=== PATIENT | female | born 1995 | race Hispanic/Latino ===

== ENCOUNTER 2017-10-13 03:14 | Emergency (ER) | payer SELFPAY ==
[~2017-10-13] VITALS: Ht 157.5 cm; Wt 67.0 kg
[~2017-10-13 03:14] MED LIST: AUGMENTIN875TAB PO; FLUZONE SPLT1 M1 IM; IRON325 MG OR; OBTREX DHA PO; PARAGARD; PRILOSEC40 MG PO
[2017-10-13] MEDS ORDERED: AMOXICILLIN500 MG PO (04:07)
[2017-10-13 04:24] VITALS: BP 123/86
== END 2017-10-13 04:24 | disposition home or self-care (01) | DRG 156 ==
LOC: ED 03:14
PROC: 09C4XZZ Extirpation of Matter from Left External Auditory Canal, External Approach (ICD-10-PCS; principal; 2017-10-13)
DX: T16.1XXA Foreign body in right ear, initial encounter (principal); X58.XXXA Exposure to other specified factors, initial encounter; Y92.009 Unspecified place in unspecified non-institutional (private) residence as the place of occurrence of the external cause

== ENCOUNTER 2020-12-08 13:26 | Emergency (ER) | payer OTHER ==
[~2020-12-08] VITALS: Ht 157.5 cm; Wt 70.0 kg
[~2020-12-08 13:26] MED LIST changes: +AMOXICILLIN500 MG PO
[2020-12-08 15:15] LABS: HEMATOCRIT 37.7 % (37.0-47.0); HEMOGLOBIN 12.3 g/dl (12.0-16.0); IMMATURE GRANULOCYTES 0.4 % (0.0-5.0); MEAN CELL VOLUME 81.6 fL CALC (80.0-100.0); MEAN CORPUSCULAR HGB 26.6 pG CALC (26.0-32.0); MEAN CORPUSCULAR HGB CONC 32.6 g/dL CAL (32.0-36.0); NEUT# 4.24 thou/uL (2.00-7.15); RED BLOOD COUNT 4.62 mill/uL (4.20-5.60); RED CELL DISTRI WIDTH 15.5 % (11.5-15.5)
[2020-12-08 15:26] LABS: BUN 13 mg/dL (7-17); BUN/CREATININE RATIO 21 (12-20 (CALC)); CHLORIDE 102 mmol/l (95-108); CREATININE 0.6 mg/dL (0.5-1.0); GFR > 60 ML/MIN (>=60 (CALC)); GFR FOR AFR.AMER. > 60 ML/MIN (>=60 (CALC)); LIPASE 94 u/l (23-300); SODIUM 138 mmol/l (137-146)
[2020-12-08 15:32] LABS: ALBUMIN 4.7 g/dL (3.2-5.0); ALKALINE PHOSPHATASE 232 u/l (38-126); ANION GAP 14 (6-22 (CALC)); BILIRUBIN, TOTAL 2.5 mg/dL (0.0-1.4); CARBON DIOXIDE 26 mmol/l (22-30); SGOT/AST 258 u/l (14-36); TOTAL PROTEIN 8.2 g/dL (6.3-8.2)
[2020-12-08 15:50] LABS: URINE BLOOD DIPSTICK LARGE (NEGATIVE); URINE GLUCOSE - DIPSTICK 100 mg/dL (NEGATIVE); URINE KETONE >=80 mg/dL (NEGATIVE); URINE LEUK ESTERASE NEGATIVE (NEGATIVE); URINE NITRITE - DIPSTICK NEGATIVE (Negative); URINE PROTEIN - DIPSTICK 30 mg/dL (NEG-TRACE); URINE SPECIFIC GRAVITY >=1.030
[2020-12-08 15:52] LABS: URINE BILIRUBIN - DIPSTICK LARGE (NEGATIVE); URINE COLOR DK. YELLOW
[2020-12-08 16:00] LABS: URINE SQUAMOUS EPITHELIAL CELL FEW EPI/hpf (0-FEW); URINE WBC 0-2 WBC/hpf (0-5)
[2020-12-08 17:16] VITALS: BP 128/77
[2020-12-08] MEDS ORDERED: FAMOTIDINE20 M1 PO (17:29)
[2020-12-09] MEDS ORDERED: SINGULAIR10 MG PO (09:09)
== END 2020-12-08 17:13 | disposition left against medical advice (07) ==
LOC: ED 13:26
PROVIDERS: Family Medicine
DX: K80.11 Calculus of gallbladder with chronic cholecystitis with obstruction (principal); K21.9 Gastro-esophageal reflux disease without esophagitis; Z91.19 Patient's noncompliance with other medical treatment and regimen

== ENCOUNTER 2020-12-09 08:18 | Emergency (ER) | payer OTHER ==
[~2020-12-09] VITALS: Ht 157.5 cm; Wt 50.0 kg
[~2020-12-09 08:18] MED LIST changes: +FAMOTIDINE20 M1 PO
[2020-12-09 09:01] LABS: HEMATOCRIT 38.9 % (37.0-47.0); HEMOGLOBIN 12.5 g/dl (12.0-16.0); IMMATURE GRANULOCYTES 0.6 % (0.0-5.0); MEAN CELL VOLUME 82.1 fL CALC (80.0-100.0); MEAN CORPUSCULAR HGB 26.4 pG CALC (26.0-32.0); MEAN CORPUSCULAR HGB CONC 32.1 g/dL CAL (32.0-36.0); NEUT# 5.11 thou/uL (2.00-7.15); RED BLOOD COUNT 4.74 mill/uL (4.20-5.60); RED CELL DISTRI WIDTH 15.5 % (11.5-15.5)
[2020-12-09] MEDS ORDERED: SINGULAIR10 MG PO (09:09)
[2020-12-09 09:23] VITALS: BP 120/57
[2020-12-09 09:25] LABS: ALBUMIN 4.6 g/dL (3.2-5.0); ALKALINE PHOSPHATASE 250 u/l (38-126); ANION GAP 18 (6-22 (CALC)); BILIRUBIN, TOTAL 1.6 mg/dL (0.0-1.4); BUN 11 mg/dL (7-17); BUN/CREATININE RATIO 18 (12-20 (CALC)); CARBON DIOXIDE 20 mmol/l (22-30); CHLORIDE 105 mmol/l (95-108); CREATININE 0.6 mg/dL (0.5-1.0); GFR > 60 ML/MIN (>=60 (CALC)); GFR FOR AFR.AMER. > 60 ML/MIN (>=60 (CALC)); POTASSIUM 4.1 mmol/l (3.5-5.1); SGOT/AST 174 u/l (14-36); SODIUM 139 mmol/l (137-146); TOTAL PROTEIN 7.9 g/dL (6.3-8.2)
== END 2020-12-09 09:41 | disposition short-term general hospital (02) ==
LOC: ED 08:18
PROVIDERS: Family Medicine
DX: K81.0 Acute cholecystitis (principal); E80.6 Other disorders of bilirubin metabolism; K21.9 Gastro-esophageal reflux disease without esophagitis; Z20.822 Contact with and (suspected) exposure to COVID-19